=== PATIENT | female | born 1975 | race Two or more races ===

== ENCOUNTER 2017-11-26 14:03 | Outpatient (CLI) | payer OTHER | END 2017-11-26 14:12 | disposition home or self-care (01) | LOC: SONOGRAMA 14:03 | DX: N64.4 Mastodynia (principal) ==

== ENCOUNTER 2024-12-28 10:25 | Outpatient (CLI) | payer OTHER ==
[2024-12-28] MEDS ORDERED: PROZAC20 MG PO (14:10)
[2024-12-28] MEDS ORDERED: NEXIUM 24HR20 MG PO (14:10)
== END 2024-12-28 10:29 | disposition home or self-care (01) ==
LOC: EKG 10:25
PROVIDERS: ATTEND Internal Medicine
DX: I10 Essential (primary) hypertension (principal); Z01.818 Encounter for other preprocedural examination

== ENCOUNTER 2024-12-31 09:00 | Inpatient (IN) | payer OTHER ==
[~2024-12-31 09:00] MED LIST: NEXIUM 24HR20 MG PO; PROZAC20 MG PO
[2024-12-31] MEDS ORDERED: METRONIDAZOLE/SODIUM CHLORIDE 500 MG/100 ML PIGGYBACK IV ONE ×2 (13:35→23:56)
[2024-12-31] MEDS ORDERED: CEFAZOLIN SODIUM 1,000 MG VIAL ONE ×2 (13:35→23:55)
[2024-12-31] MEDS ORDERED: POVIDONE-IODINE 118 ML BOTT TOP ONE (18:05)
[2024-12-31] MEDS ORDERED: LIDOCAINE HCL 1%/EPINEPHRINE 20ML VIAL IJ ONE (18:05)
[2024-12-31] MEDS ORDERED: HEMOSTATIC MATRIX WITH THROMBIN KIT TOP ONE (20:09)
[2024-12-31] MEDS ORDERED: SUGAMMADEX SODIUM 200 MG/2 ML VIAL IV ONE (20:24)
[2024-12-31] MEDS ORDERED: KETOROLAC TROMETHAMINE 30 MG VIAL IV ONE (21:15)
[2024-12-31] MEDS ORDERED: RINGERS SOLUTION,LACTATED 1,000 ML IV SCH (21:15)
[2024-12-31] MEDS ORDERED: MORPHINE SULFATE 4 MG/ML CARTRIDGE IV PRN (21:15)
[2024-12-31] MEDS ORDERED: MORPHINE SULFATE 4 MG/ML VIAL IV ONE ×2 (21:35→22:05)
[2024-12-31] MEDS ORDERED: KETOROLAC TROMETHAMINE 30 MG VIAL ONE ×2 (21:42→23:55)
[2024-12-31 23:30] LABS: BASO % 0.2 % (0.1-1.2); EOS # 0.00 (0.04-0.54); EOS % 0.0 % (0.7-7.0); LYMPH # 0.76 (1.18-3.74); LYMPH % 5.5 % (19.3-53.1); MEAN PLATELET VOLUME 10.20 fl (9.4-12.4); MONO # 0.32 (0.24-0.82); MONO % 2.3 % (4.7-12.5); NEUT # 12.60 (1.56-6.13); NEUT % 91.5 % (34.0-71.1); RED CELL DISTRIBUTION WIDTH 12.4 % (11.6-14.4)
[2024-12-31] MEDS ORDERED: METOCLOPRAMIDE HCL 5 MG/ML VIAL ONE (23:54)
[2024-12-31 23:57] LABS: BUN CREA RATIO 11.0 (7.0-25.0); CREATININE SERUM 0.72 mg/dL (0.55-1.02); GFR 85.74; GLUCOSE FASTING 122.0 mg/dL (65-100); OSMOLALITY SERUM 279.0 MOSM/KG (275-295)
[2025-01-01] MEDS ORDERED: KETOROLAC TROMETHAMINE 30 MG VIAL IM SCH
[2025-01-01] MEDS ORDERED: ACETAMINOPHEN 500 MG GEL..CAP PO SCH
[2025-01-01] MEDS ORDERED: CEFAZOLIN SODIUM 1,000 MG VIAL IV SCH (01:00)
[2025-01-01] MEDS ORDERED: METRONIDAZOLE/SODIUM CHLORIDE 500 MG/100 ML PIGGYBACK IV SCH (01:00)
[2025-01-01] MEDS ORDERED: METOCLOPRAMIDE HCL 5 MG/ML VIAL IV SCH (01:00)
[2025-01-01] MEDS ORDERED: POTASSIUM PHOS,M-BASIC-D-BASIC 3 MM/ML VIAL IV ONE (01:45)
[2025-01-01 02:31] VITALS: BP 131/77
[2025-01-01 06:46] LABS: BASO % 0.2 % (0.1-1.2); EOS # 0.02 (0.04-0.54); EOS % 0.2 % (0.7-7.0); LYMPH # 1.56 (1.18-3.74); LYMPH % 15.7 % (19.3-53.1); MEAN PLATELET VOLUME 9.90 fl (9.4-12.4); MONO # 0.88 (0.24-0.82); MONO % 8.9 % (4.7-12.5); NEUT # 7.43 (1.56-6.13); NEUT % 74.7 % (34.0-71.1); RED CELL DISTRIBUTION WIDTH 12.4 % (11.6-14.4)
[2025-01-01 07:06] LABS: BUN CREA RATIO 9.0 (7.0-25.0); CREATININE SERUM 0.55 mg/dL (0.55-1.02); GFR 116.99; GLUCOSE FASTING 90.0 mg/dL (65-100); OSMOLALITY SERUM 276.0 MOSM/KG (275-295)
[2025-01-01] MEDS ORDERED: OxyCODONE HCL ER 10MG TAB (OxyCONTIN) PO PRN (08:15)
[2025-01-01 09:00] VITALS: BP 99/63
[2025-01-01] MEDS ORDERED: FAMOTIDINE/PF 20 MG/2 ML VIAL IV PUSH SCH (09:00)
[2025-01-01] MEDS ORDERED: SIMETHICONE 125 MG CAPSULE PO SCH (09:00)
[2025-01-01] MEDS ORDERED: KETOROLAC TROMETHAMINE 30 MG VIAL IV SCH (09:00)
[2025-01-01] MEDS ORDERED: DOCUSATE SODIUM 100MG CAP PO SCH ×2 (09:00)
[2025-01-01] MEDS ORDERED: SUGAMMADEX SODIUM 200 MG/2 ML VIAL IV ONE (15:30)
[2025-01-01 16:23] VITALS: BP 100/62
[2025-01-01 20:20] VITALS: BP 118/73; O2SAT 99
[2025-01-01] MEDS ORDERED: GABAPENTIN 300 MG CAPSULE PO SCH (21:00)
[2025-01-02] VITALS: BP 124/74
[2025-01-02 08:18] VITALS: BP 101/61
== END 2025-01-02 09:57 | disposition home or self-care (01) | DRG 743 ==
LOC: CIR.AMB 09:00 → EDSTATUS 12:15 → SURG 12:15 → OB/GYN 21:48
PROVIDERS: ADMIT Obstetrics & Gynecology; ATTEND Obstetrics & Gynecology
PROC: 0UJD4ZZ Inspection of Uterus and Cervix, Percutaneous Endoscopic Approach (ICD-10-PCS; 2024-12-31)
PROC: 0UT70ZZ Resection of Bilateral Fallopian Tubes, Open Approach (ICD-10-PCS; 2024-12-31)
PROC: 0TNB0ZZ Release Bladder, Open Approach (ICD-10-PCS; 2024-12-31)
PROC: 0USG0ZZ Reposition Vagina, Open Approach (ICD-10-PCS; 2024-12-31)
PROC: 0UT90ZZ Resection of Uterus, Open Approach (ICD-10-PCS; principal; 2024-12-31 12:00)
DX: D25.1 Intramural leiomyoma of uterus (principal); D25.2 Subserosal leiomyoma of uterus; N72 Inflammatory disease of cervix uteri; D28.2 Benign neoplasm of uterine tubes and ligaments; Z53.31 Laparoscopic surgical procedure converted to open procedure